=== PATIENT | male | born 1940 | race African-American/Black ===

== ENCOUNTER 2023-10-23 21:00 | Inpatient (IN) | payer MEDICARE ==
[2023-10-24 00:38] VITALS: BMI 26.9
[2023-10-24] MEDS: Sodium Chloride 0.9% 1,000 ML IV SCH ×2 (01:32→17:11)
[2023-10-24 05:07] LABS: #Monocytes 0.5 10x3/uL (0.0-1.1); #Neutrophils 3.2 10x3/uL (1.5-8.4); %Basophils 0.2 % (0.0-2.0); %Eosinophils 0.2 % (0.0-6.0); %Lymphocytes 36.3 % (18.0-47.0); %Monocytes 7.7 % (0.0-10.0); %Neutrophils 55.1 % (40.0-75.0); Hematocrit 36.1 % (38.8-50.0); Hemoglobin 11.4 g/dL (13.5-17.5); Mean Corpuscular HGB CONC 31.6 g/dL (32.0-36.0); Mean Corpuscular Hemoglobin 28.3 pg (27.0-33.0); Mean Corpuscular Volume 89.6 fl (81.2-95.1); Mean Platelet Volume 10.7 fl (7.4-10.4); Platelet Count 183 10x3/uL (150-450); RBC Distribution Width 13.4 % (11.5-14.5); Red Blood Cell (RBC) Count 4.03 10x6/uL (4.32-5.72); White Blood Cell (WBC) Count 5.8 10x3/uL (3.5-10.5)
[2023-10-24 05:20] LABS: Anion Gap 14 mmol/L (10-20); BUN (Urea Nitrogen) 35 mg/dL (8.4-25.7); CK (CPK) 1102 U/L (30-200); Calc. Creatinine Clearance 39 mL/min (70-130); Calcium 8.5 mg/dL (7.8-10.44); Carbon Dioxide 22 mmol/L (23-31); Cardiac Risk 5.8 (Less than 4.5); Chloride 113 mmol/L (98-107); Cholesterol 174 mg/dl (< 200 Desired); Estimated GFR 35; Glucose 105 mg/dL (83-110); HDL Cholesterol 30 mg/dL (>60 Neg Risk); LDL Cholesterol, Calculated 127 mg/dL; Magnesium 1.8 mg/dL (1.6-2.6); Potassium 4.6 mmol/L (3.5-5.1); Sodium 144 mmol/L (136-145); Triglycerides 86 mg/dL (Less than 150)
[2023-10-24 05:37] LABS: Syphilis Antibody Nonreactive (Nonreactive); Syphilis Antibody Index 0.08 S/CO (<1.00 Non-Reactive)
[2023-10-24] MEDS ORDERED: Atropine Sulfate 1 mg/1 ml Vial IVP PRN (08:59)
[2023-10-24] MEDS ORDERED: Amlodipine 10 MG TAB PO SCH (09:00)
[2023-10-24] MEDS ORDERED: Magnesium 2 GM/50 ML(in water) 2 GM in Premix 1 BAG IVPB SCH (09:00)
[2023-10-24] MEDS ORDERED: hydrALAZINE 25 MG TAB PO SCH (09:00)
[2023-10-24] MEDS ORDERED: hydrALAZINE 20 MG/ML VIAL SLOW IVP PRN (10:01)
[2023-10-24] MEDS: hydrALAZINE 25 MG TAB PO SCH ×4 (10:12→20:16)
[2023-10-24] MEDS ORDERED: Thiamine HCl 200 MG/2 ML VIAL SLOW IVP SCH (14:00)
[2023-10-24 17:18] LABS: PSA-Asymptomatic (SCREENING) 14.503 ng/mL (0-4.0)
[2023-10-24 17:45] LABS: Uric Acid 11.3 mg/dL (3.5-7.2)
[2023-10-24] MEDS: Senokot S 8.6-50 MG TAB PO SCH (20:15)
[2023-10-24] MEDS: Thiamine 100 MG TAB PO SCH (20:15)
[2023-10-24] MEDS: guaiFENesin ER 600 MG TAB PO SCH (20:16)
[2023-10-24] MEDS: Folic Acid 1 MG TAB PO SCH (20:16)
[2023-10-24] MEDS: Cyanocobalamin (Vitamin B-12) 1,000 MCG TAB PO SCH (20:17)
[2023-10-24] MEDS: Cholecalciferol 1,000 UNITS (25 MCG) TAB PO SCH (20:17)
[2023-10-24] MEDS: Aspirin 81 mg Enteric Coated Tablet PO SCH (20:17)
[2023-10-24] MEDS: Multivit, Therapeutic 1 TAB PO SCH (20:17)
[2023-10-25] MEDS: hydrALAZINE 20 MG/ML VIAL SLOW IVP PRN ×2 (01:07→05:52)
[2023-10-25] MEDS ORDERED: Haloperidol Lactate 5 MG/ML VIAL SLOW IVP SCH (01:15)
[2023-10-25] MEDS: Sodium Chloride 0.9% 1,000 ML IV SCH ×2 (05:25→09:02)
[2023-10-25 06:33] LABS: ALT (SGPT) 24 U/L (8-55); AST (SGOT) 52 U/L (5-34); Albumin 3.5 g/dL (3.4-4.8); Alkaline Phosphatase 36 U/L (40-110); Anion Gap 14 mmol/L (10-20); BUN (Urea Nitrogen) 31 mg/dL (8.4-25.7); Bilirubin, Total 1.3 mg/dL (0.2-1.2); Calc. Creatinine Clearance 50 mL/min (70-130); Calcium 8.8 mg/dL (7.8-10.44); Carbon Dioxide 21 mmol/L (23-31); Chloride 111 mmol/L (98-107); Estimated GFR 47; Globulin 3.2 g/dL (2.4-3.5); Glucose 104 mg/dL (83-110); Potassium 4.4 mmol/L (3.5-5.1); Protein, Total 6.7 g/dL (5.8-8.1); Sodium 142 mmol/L (136-145)
[2023-10-25] MEDS ORDERED: Citalopram 20 MG TAB PO SCH (09:00)
[2023-10-25] MEDS ORDERED: Thiamine HCl 200 MG/2 ML VIAL SLOW IVP SCH (09:00)
[2023-10-25] MEDS: guaiFENesin ER 600 MG TAB PO SCH ×2 (09:01→20:12)
[2023-10-25] MEDS: hydrALAZINE 25 MG TAB PO SCH ×4 (09:02→20:11)
[2023-10-25] MEDS: Senokot S 8.6-50 MG TAB PO SCH ×2 (09:03→20:12)
[2023-10-25] MEDS: Sertraline 25 MG TAB PO SCH (17:54)
[2023-10-25] MEDS: Folic Acid 1 MG TAB PO SCH (20:10)
[2023-10-25] MEDS: Multivit, Therapeutic 1 TAB PO SCH (20:10)
[2023-10-25] MEDS: Donepezil HCl 5 MG TAB PO SCH (20:11)
[2023-10-25] MEDS: Thiamine 100 MG TAB PO SCH (20:11)
[2023-10-25] MEDS: Aspirin 81 mg Enteric Coated Tablet PO SCH (20:12)
[2023-10-25] MEDS: Cholecalciferol 1,000 UNITS (25 MCG) TAB PO SCH (20:12)
[2023-10-25] MEDS: Cyanocobalamin (Vitamin B-12) 1,000 MCG TAB PO SCH (20:12)
[2023-10-26] MEDS: hydrALAZINE 20 MG/ML VIAL SLOW IVP PRN ×2 (01:07→05:13)
[2023-10-26 04:57] LABS: #Monocytes 0.7 10x3/uL (0.0-1.1); #Neutrophils 4.3 10x3/uL (1.5-8.4); %Basophils 0.1 % (0.0-2.0); %Eosinophils 0.1 % (0.0-6.0); %Monocytes 9.8 % (0.0-10.0); %Neutrophils 63.7 % (40.0-75.0); Hematocrit 36.6 % (38.8-50.0); Hemoglobin 11.8 g/dL (13.5-17.5); Mean Corpuscular HGB CONC 32.2 g/dL (32.0-36.0); Mean Corpuscular Hemoglobin 29.1 pg (27.0-33.0); Mean Corpuscular Volume 90.4 fl (81.2-95.1); Mean Platelet Volume 10.7 fl (7.4-10.4); Platelet Count 197 10x3/uL (150-450); RBC Distribution Width 13.6 % (11.5-14.5); Red Blood Cell (RBC) Count 4.05 10x6/uL (4.32-5.72); White Blood Cell (WBC) Count 6.8 10x3/uL (3.5-10.5)
[2023-10-26] MEDS: Sodium Chloride 0.9% 1,000 ML IV SCH (05:14)
[2023-10-26 05:16] LABS: Anion Gap 14 mmol/L (10-20); BUN (Urea Nitrogen) 33 mg/dL (8.4-25.7); Calc. Creatinine Clearance 50 mL/min (70-130); Calcium 8.7 mg/dL (7.8-10.44); Carbon Dioxide 20 mmol/L (23-31); Chloride 110 mmol/L (98-107); Estimated GFR 47; Glucose 129 mg/dL (83-110); Magnesium 1.9 mg/dL (1.6-2.6); Potassium 4.5 mmol/L (3.5-5.1); Sodium 139 mmol/L (136-145)
[2023-10-26] MEDS: Senokot S 8.6-50 MG TAB PO SCH (08:20)
[2023-10-26] MEDS: guaiFENesin ER 600 MG TAB PO SCH ×2 (08:20→21:10)
[2023-10-26] MEDS: Sertraline 25 MG TAB PO SCH (08:20)
[2023-10-26] MEDS: hydrALAZINE 25 MG TAB PO SCH ×4 (08:20→21:09)
[2023-10-26] MEDS: Lactated Ringer's 1,000 ML IV SCH (17:00)
[2023-10-26] MEDS: Cholecalciferol 1,000 UNITS (25 MCG) TAB PO SCH (21:10)
[2023-10-26] MEDS: Multivit, Therapeutic 1 TAB PO SCH (21:10)
[2023-10-26] MEDS: Melatonin 3 MG TAB PO SCH (21:10)
[2023-10-26] MEDS: Donepezil HCl 5 MG TAB PO SCH (21:10)
[2023-10-26] MEDS: Folic Acid 1 MG TAB PO SCH (21:10)
[2023-10-26] MEDS: Thiamine 100 MG TAB PO SCH (21:10)
[2023-10-26] MEDS: Aspirin 81 mg Enteric Coated Tablet PO SCH (21:10)
[2023-10-26] MEDS: Cyanocobalamin (Vitamin B-12) 1,000 MCG TAB PO SCH (21:10)
[2023-10-27] MEDS: hydrALAZINE 20 MG/ML VIAL SLOW IVP PRN (04:11)
[2023-10-27] MEDS: Senokot S 8.6-50 MG TAB PO SCH (07:58)
[2023-10-27] MEDS: hydrALAZINE 25 MG TAB PO SCH ×4 (07:58→22:18)
[2023-10-27] MEDS: guaiFENesin ER 600 MG TAB PO SCH ×2 (07:59→22:18)
[2023-10-27] MEDS: Lactated Ringer's 1,000 ML IV SCH (11:36)
[2023-10-27] MEDS ORDERED: Sertraline 25 MG TAB PO SCH (21:00)
[2023-10-27] MEDS: Thiamine 100 MG TAB PO SCH (22:17)
[2023-10-27] MEDS: Folic Acid 1 MG TAB PO SCH (22:17)
[2023-10-27] MEDS: Cholecalciferol 1,000 UNITS (25 MCG) TAB PO SCH (22:17)
[2023-10-27] MEDS: Multivit, Therapeutic 1 TAB PO SCH (22:17)
[2023-10-27] MEDS: Donepezil HCl 5 MG TAB PO SCH (22:17)
[2023-10-27] MEDS: Cyanocobalamin (Vitamin B-12) 1,000 MCG TAB PO SCH (22:17)
[2023-10-27] MEDS: QUEtiapine 25 MG TAB PO SCH (22:17)
[2023-10-27] MEDS: Aspirin 81 mg Enteric Coated Tablet PO SCH (22:17)
[2023-10-27] MEDS: Melatonin 3 MG TAB PO SCH (22:18)
[2023-10-28 06:38] LABS: #Monocytes 0.5 10x3/uL (0.0-1.1); #Neutrophils 3.3 10x3/uL (1.5-8.4); %Basophils 0.3 % (0.0-2.0); %Eosinophils 0.3 % (0.0-6.0); %Lymphocytes 33.3 % (18.0-47.0); %Monocytes 8.9 % (0.0-10.0); %Neutrophils 56.9 % (40.0-75.0); Hematocrit 33.9 % (38.8-50.0); Hemoglobin 10.8 g/dL (13.5-17.5); Mean Corpuscular HGB CONC 31.9 g/dL (32.0-36.0); Mean Corpuscular Hemoglobin 28.9 pg (27.0-33.0); Mean Corpuscular Volume 90.6 fl (81.2-95.1); Mean Platelet Volume 11.3 fl (7.4-10.4); Platelet Count 186 10x3/uL (150-450); RBC Distribution Width 13.8 % (11.5-14.5); Red Blood Cell (RBC) Count 3.74 10x6/uL (4.32-5.72); White Blood Cell (WBC) Count 5.8 10x3/uL (3.5-10.5)
[2023-10-28 06:45] LABS: Phosphorus 2.9 mg/dL (2.3-4.7)
[2023-10-28 06:47] LABS: ALT (SGPT) 24 U/L (8-55); AST (SGOT) 54 U/L (5-34); Alkaline Phosphatase 28 U/L (40-110); Anion Gap 13 mmol/L (10-20); BUN (Urea Nitrogen) 36 mg/dL (8.4-25.7); Bilirubin, Total 0.6 mg/dL (0.2-1.2); Calc. Creatinine Clearance 53 mL/min (70-130); Calcium 8.4 mg/dL (7.8-10.44); Carbon Dioxide 24 mmol/L (23-31); Chloride 108 mmol/L (98-107); Estimated GFR 50; Glucose 103 mg/dL (83-110); Magnesium 1.8 mg/dL (1.6-2.6); Potassium 4.7 mmol/L (3.5-5.1); Sodium 140 mmol/L (136-145)
[2023-10-28] MEDS ORDERED: Magnesium 2 GM/50 ML(in water) 2 GM in Premix 1 BAG IVPB SCH (09:00)
[2023-10-28] MEDS: Senokot S 8.6-50 MG TAB PO SCH ×2 (09:18→21:25)
[2023-10-28] MEDS: hydrALAZINE 25 MG TAB PO SCH ×4 (09:18→21:24)
[2023-10-28] MEDS: Lactated Ringer's 1,000 ML IV SCH (09:22)
[2023-10-28] MEDS: guaiFENesin ER 600 MG TAB PO SCH (09:35)
[2023-10-28] MEDS ORDERED: Acetaminophen 325 MG TAB PO PRN (18:26)
[2023-10-28] MEDS: Multivit, Therapeutic 1 TAB PO SCH (21:23)
[2023-10-28] MEDS: Thiamine 100 MG TAB PO SCH (21:23)
[2023-10-28] MEDS: Folic Acid 1 MG TAB PO SCH (21:23)
[2023-10-28] MEDS: Aspirin 81 mg Enteric Coated Tablet PO SCH ×2 (21:23→21:24)
[2023-10-28] MEDS: Donepezil HCl 5 MG TAB PO SCH (21:24)
[2023-10-28] MEDS: QUEtiapine 25 MG TAB PO SCH (21:24)
[2023-10-28] MEDS: Melatonin 3 MG TAB PO SCH (21:24)
[2023-10-28] MEDS: Cyanocobalamin (Vitamin B-12) 1,000 MCG TAB PO SCH (21:24)
[2023-10-28] MEDS: Cholecalciferol 1,000 UNITS (25 MCG) TAB PO SCH (21:24)
[2023-10-29] MEDS: guaiFENesin ER 600 MG TAB PO SCH ×2 (01:04→10:08)
[2023-10-29] MEDS: Lactated Ringer's 1,000 ML IV SCH (03:15)
[2023-10-29] MEDS: hydrALAZINE 25 MG TAB PO SCH ×3 (09:59→21:12)
[2023-10-29] MEDS: Senokot S 8.6-50 MG TAB PO SCH ×2 (10:00→21:12)
[2023-10-29] MEDS: Cyanocobalamin (Vitamin B-12) 1,000 MCG TAB PO SCH (21:12)
[2023-10-29] MEDS: QUEtiapine 25 MG TAB PO SCH (21:12)
[2023-10-29] MEDS: Multivit, Therapeutic 1 TAB PO SCH (21:12)
[2023-10-29] MEDS: Thiamine 100 MG TAB PO SCH (21:12)
[2023-10-29] MEDS: Cholecalciferol 1,000 UNITS (25 MCG) TAB PO SCH (21:13)
[2023-10-29] MEDS: Folic Acid 1 MG TAB PO SCH (21:13)
[2023-10-30 04:21] LABS: #Monocytes 0.4 10x3/uL (0.0-1.1); #Neutrophils 3.7 10x3/uL (1.5-8.4); %Basophils 0.2 % (0.0-2.0); %Eosinophils 0.5 % (0.0-6.0); %Lymphocytes 24.4 % (18.0-47.0); %Monocytes 7.8 % (0.0-10.0); %Neutrophils 66.9 % (40.0-75.0); Anion Gap 14 mmol/L (10-20); BUN (Urea Nitrogen) 51 mg/dL (8.4-25.7); Calc. Creatinine Clearance 49 mL/min (70-130); Calcium 8.5 mg/dL (7.8-10.44); Carbon Dioxide 24 mmol/L (23-31); Chloride 105 mmol/L (98-107); Estimated GFR 46; Glucose 157 mg/dL (83-110); Hematocrit 33.8 % (38.8-50.0); Hemoglobin 10.7 g/dL (13.5-17.5); Mean Corpuscular HGB CONC 31.7 g/dL (32.0-36.0); Mean Corpuscular Volume 91.6 fl (81.2-95.1); Mean Platelet Volume 11.2 fl (7.4-10.4); Platelet Count 218 10x3/uL (150-450); Potassium 5.3 mmol/L (3.5-5.1); RBC Distribution Width 13.7 % (11.5-14.5); Red Blood Cell (RBC) Count 3.69 10x6/uL (4.32-5.72); Sodium 138 mmol/L (136-145); White Blood Cell (WBC) Count 5.5 10x3/uL (3.5-10.5)
[2023-10-30 04:45] LABS: Syphilis Antibody Nonreactive (Nonreactive); Syphilis Antibody Index 0.08 S/CO (<1.00 Non-Reactive)
[2023-10-30] MEDS: Sodium Chloride 0.9% 1,000 ML IV SCH (10:45)
[2023-10-30] MEDS: Senokot S 8.6-50 MG TAB PO SCH ×2 (11:42→21:26)
[2023-10-30] MEDS: hydrALAZINE 25 MG TAB PO SCH ×3 (11:42→21:24)
[2023-10-30] MEDS ORDERED: Melatonin 3 MG TAB PO SCH (21:00)
[2023-10-30] MEDS: Aspirin 81 mg Enteric Coated Tablet PO SCH (21:24)
[2023-10-30] MEDS: Cholecalciferol 1,000 UNITS (25 MCG) TAB PO SCH (21:24)
[2023-10-30] MEDS: Multivit, Therapeutic 1 TAB PO SCH (21:25)
[2023-10-30] MEDS: Cyanocobalamin (Vitamin B-12) 1,000 MCG TAB PO SCH (21:25)
[2023-10-30] MEDS: QUEtiapine 25 MG TAB PO SCH (21:25)
[2023-10-30] MEDS: Thiamine 100 MG TAB PO SCH (21:25)
[2023-10-30] MEDS: Folic Acid 1 MG TAB PO SCH (21:25)
[2023-10-31 03:54] LABS: Anion Gap 12 mmol/L (10-20); BUN (Urea Nitrogen) 48 mg/dL (8.4-25.7); Calc. Creatinine Clearance 54 mL/min (70-130); Calcium 8.3 mg/dL (7.8-10.44); Carbon Dioxide 25 mmol/L (23-31); Chloride 108 mmol/L (98-107); Estimated GFR 52; Glucose 115 mg/dL (83-110); Potassium 5.2 mmol/L (3.5-5.1); Sodium 140 mmol/L (136-145)
[2023-10-31] MEDS: Sodium Chloride 0.9% 1,000 ML IV SCH (06:33)
[2023-10-31] MEDS ORDERED: Sodium Chloride 0.45% 1,000 ML IV SCH (08:00)
[2023-10-31] MEDS: Sodium Bicarbonate Tab 325 MG TAB PO SCH ×2 (08:45→14:08)
[2023-10-31] MEDS: Senokot S 8.6-50 MG TAB PO SCH (08:45)
[2023-10-31] MEDS: hydrALAZINE 25 MG TAB PO SCH ×2 (08:45→14:07)
[2023-10-31] MEDS ORDERED: Melatonin 3 MG TAB PO PRN (09:34)
[2023-10-31 12:50] VITALS: BP 126/58; TEMP 97.6
== END 2023-10-31 15:50 | DRG 71 ==
LOC: CSHTELE 21:05 → OBSVTOIN 10-24 00:24
PROVIDERS: ADMIT Family Medicine; ATTEND Internal Medicine
DX: G93.41 Metabolic encephalopathy (principal); N17.9 Acute kidney failure, unspecified; N39.0 Urinary tract infection, site not specified; R44.1 Visual hallucinations; I44.0 Atrioventricular block, first degree; M10.9 Gout, unspecified; E78.5 Hyperlipidemia, unspecified; F03.90 Unspecified dementia, unspecified severity, without behavioral disturbance, psychotic disturbance, mood disturbance, and anxiety; R79.89 Other specified abnormal findings of blood chemistry; N18.32 Chronic kidney disease, stage 3b; I12.9 Hypertensive chronic kidney disease with stage 1 through stage 4 chronic kidney disease, or unspecified chronic kidney disease; E87.5 Hyperkalemia; D63.1 Anemia in chronic kidney disease; G31.9 Degenerative disease of nervous system, unspecified; Z88.5 Allergy status to narcotic agent; Z79.82 Long term (current) use of aspirin; Z79.899 Other long term (current) drug therapy; Z90.79 Acquired absence of other genital organ(s); Z98.890 Other specified postprocedural states; Z80.42 Family history of malignant neoplasm of prostate; Z82.49 Family history of ischemic heart disease and other diseases of the circulatory system
CPT/HCPCS: 36415; 36416; 70450; 80048; 80053; 80061; 82550; 82607; 83735; 84100; 84443; 84550; 85025; 86780; 93005; 93010; 93880; G0103; J0360; J1630; J1650; J3411; J3475; J7050; J7120